=== PATIENT | female | born 1995 | race Caucasian/White ===

== ENCOUNTER → 2024-09-29 | Emergency (ER) | payer MEDICAID, OTHER ==
[~2024-09-29] VITALS: Ht 167.6 cm; Wt 81.6 kg
[~2024-09-29] MED LIST: ALBUTEROL FS 2.5 MG/0.5 ML VIAL.NEB ONE
[2024-09-29] MEDS: ALBUTEROL FS 2.5 MG/0.5 ML VIAL.NEB NEB ONE (23:48)
[2024-09-29 23:49] VITALS: O2SAT 100
[2024-09-29 23:51] VITALS: O2SAT 100
[2024-09-29 23:57] VITALS: O2SAT 100
[2024-09-30 01:23] VITALS: BP 125/75; TEMP 98.2; O2SAT 100
== END | disposition home or self-care (01) ==
LOC: ER 22:49
DX: J98.01 Acute bronchospasm (principal); R06.02 Shortness of breath; R05.9 Cough, unspecified
CPT/HCPCS: 71045-TC